=== PATIENT | female | born 1950 | race Caucasian/White ===

== ENCOUNTER 2024-07-09 | Emergency (ER) | payer BC, MEDICARE ==
[~2024-07-09] VITALS: Ht 157.5 cm; Wt 106.0 kg
[~2024-07-09] MED LIST: ATORVASTATIN CA40 MG PO; BUPROPION XL150 MG PO; DULOXETINE HCL60 MG PO; FENOFIBRATE145 MG PO; GLYCOPYRROLATE1 MG PO; LEVOTHYROXINE88 MCG PO; MACROBID 100 M100 MG PO; MELOXICAM7.5 MG PO; METFORMIN HCL1000 MG PO; METOPROLOL SUCC50 MG PO; ROPINIROLE HCL0.5 MG PO; TRAZODONE HCL50 MG; TRULICITY1.5 MG/0.5 SQ; VALACYCLOVIR500 MG PO; ZOLPIDEM TARTRA10 MG PO
[2024-07-09 00:28] LABS: BASOPHILS 0.7 % (0-2); EOSINOPHILS 2.3 % (0-6); HEMATOCRIT 36.8 % (35.0-50.0); HEMOGLOBIN 12.3 g/dL (12.0-18.0); LYMPHOCYTES 46.9 % (24-44); MCHC 33.6 g/dl (30-36); MCV 92.3 fl (81-99); MONOCYTES 9.1 % (0-12); PLATELET COUNT 310 K/uL (140-440); RBC 3.99 M/ul (4.3-5.7); RDW 13.6 (10.5-15.0)
[2024-07-09 00:43] LABS: ALBUMIN 3.1 g/dL (3.4-5.0); ALBUMIN/GLOBULIN RATIO 1.03 (1.1-2.4); ANION GAP 20.9 (7-21); BILIRUBIN, TOTAL 0.2 ng/dL (0.2-1.0); BUN/CREATININE RATIO 20.83 (6.0-28.6); CALCIUM 9.5 mg/dL (8.5-10.1); CREATININE, SERUM 1.2 mg/dL (0.55-1.02); MAGNESIUM 1.2 mg/dL (1.8-2.4); POTASSIUM 3.9 mmol/L (3.5-5.1); PROTEIN, TOTAL 6.1 g/dL (6.4-8.2)
[2024-07-09] MEDS ORDERED: MAGNESIUM SULFATE 2 GM/50 ML BAG IV ONE (01:00)
[2024-07-09] MEDS ORDERED: SODIUM CHLORIDE 0.9% 1,000 ML IV PRN (01:45)
[2024-07-09 03:00] VITALS: BP 112/78
--- NOTE | 2024-07-11 07:42 | EKG ---
[facility] [address] [facility] [place] [address] Signed Sinus rhythm with frequent premature ventricular complexes Prolonged QT Abnormal ECG No previous ECGs available Confirmed by Corey Melvin MD ([id number]) on 07/11/2024 7:42:01 AM Electronically Signed By: COREY MELVIN MD 07/11/24 0742 PATIENT NAME: KEIKO HARRISON Electrocardiogram DATE OF : 54 PHYSICIAN: COREY MELVIN MD REPORT #: [id number] REPORT IS CONFIDENTIAL AND NOT TO BE RELEASED WITHOUT AUTHORIZATION
== END 2024-07-09 03:02 | disposition home or self-care (01) ==
LOC: ED
PROVIDERS: Family Medicine
DX: F19.10 Other psychoactive substance abuse, uncomplicated (principal); E83.42 Hypomagnesemia; E11.9 Type 2 diabetes mellitus without complications; M79.7 Fibromyalgia; Z88.0 Allergy status to penicillin; Z79.890 Hormone replacement therapy; Z79.1 Long term (current) use of non-steroidal anti-inflammatories (NSAID); Z79.85 Long-term (current) use of injectable non-insulin antidiabetic drugs; Z79.84 Long term (current) use of oral hypoglycemic drugs; Z79.899 Other long term (current) drug therapy
CPT/HCPCS: 36415; 80053; 83735; 85025; 93005; 93010; 96374; 99285-25; G0480; J3475; J7030

== ENCOUNTER 2024-09-08 15:53 | Emergency (ER) | payer BC, MEDICARE ==
[~2024-09-08] VITALS: Ht 157.5 cm; Wt 102.3 kg
[2024-09-08 16:12] LABS: BASOPHILS 0.6 % (0-2); EOSINOPHILS 1.6 % (0-6); HEMATOCRIT 48.3 % (35.0-50.0); HEMOGLOBIN 16.1 g/dL (12.0-18.0); LYMPHOCYTES 24.4 % (24-44); MCH 30.6 (27-36); MCHC 33.4 g/dl (30-36); MCV 91.7 fl (81-99); NEUTROPHILS 65.4 % (39-80); PLATELET COUNT 339 K/uL (140-440); RBC 5.26 M/ul (4.3-5.7); RDW 13.5 (10.5-15.0)
[2024-09-08 16:22] LABS: PARTIAL THROMBOPLASTIN TIME 21.6 Sec (22.9-41.3)
[2024-09-08 16:23] LABS: INR 0.96 (0.80-1.30); PROTIME 12.1 Sec (11.2-14.2)
[2024-09-08 16:34] LABS: ALBUMIN 3.6 g/dL (3.4-5.0); ALBUMIN/GLOBULIN RATIO 1.03 (1.1-2.4); ANION GAP 17.3 (7-21); BILIRUBIN, TOTAL 0.5 ng/dL (0.2-1.0); BUN/CREATININE RATIO 15.88 (6.0-28.6); CALCIUM 9.7 mg/dL (8.5-10.1); CREATININE, SERUM 1.07 mg/dL (0.55-1.02); MAGNESIUM 1.2 mg/dL (1.8-2.4); POTASSIUM 4.3 mmol/L (3.5-5.1); PROTEIN, TOTAL 7.1 g/dL (6.4-8.2)
[2024-09-08 17:25] LABS: INFLUENZA B NAA NEGATIVE (NEGATIVE); RESPIRATORY SYNCYTIAL VIR NAA NEGATIVE (NEGATIVE)
[2024-09-08] MEDS ORDERED: MAGNESIUM SULFATE 2 GM/50 ML BAG IV ONE (18:15)
[2024-09-08 19:45] VITALS: BP 152/71
--- NOTE | 2024-09-10 11:34 | EKG ---
[facility] [address] [facility] [place] [address] Signed Sinus rhythm with premature ventricular complexes or fusion complexes Possible Left atrial enlargement Borderline ECG When compared with ECG of 09-JUL-2024 00:40, fusion complexes are now present QT has shortened Confirmed by Corey Melvin MD ([id number]) on 09/10/2024 11:33:55 AM Electronically Signed By: COREY MELVIN MD 09/10/24 1134 PATIENT NAME: KEIKO HARRISON Electrocardiogram DATE OF : 54 PHYSICIAN: COREY MELVIN MD REPORT #: [id number] REPORT IS CONFIDENTIAL AND NOT TO BE RELEASED WITHOUT AUTHORIZATION
== END 2024-09-08 19:45 | disposition home or self-care (01) ==
LOC: ED 15:53
PROVIDERS: Emergency Medicine
DX: R06.02 Shortness of breath (principal); E83.42 Hypomagnesemia; I49.3 Ventricular premature depolarization; J44.89 Other specified chronic obstructive pulmonary disease; E11.9 Type 2 diabetes mellitus without complications; I10 Essential (primary) hypertension; E07.9 Disorder of thyroid, unspecified; Z88.0 Allergy status to penicillin; Z79.890 Hormone replacement therapy; Z79.84 Long term (current) use of oral hypoglycemic drugs; Z79.899 Other long term (current) drug therapy
CPT/HCPCS: 36415; 71260; 80053; 83735; 83880; 84484; 85025; 85610; 85730; 87502; 93005; 93010; 99285-25; J3475; U0002